=== PATIENT | male | born 1960 | race Caucasian/White ===

== ENCOUNTER → 2017-10-10 | Outpatient (REF) | payer BC ==
[2017-10-10 11:36] LABS: ALBUMIN 3.9 GM/DL (3.2-5.2); ALBUMIN/GLOBULIN RATIO 1.15 (1.00-1.93); ALKALINE PHOSPHATASE 88 U/L (45-117); ALT/SGPT 82 U/L (12-78); ANION GAP 7 MEQ/L (8-16); AST/SGOT 47 U/L (7-37); BILIRUBIN,TOTAL 0.2 MG/DL (0.2-1.0); BLOOD UREA NITROGEN 16 MG/DL (7-18); CALCIUM LEVEL 8.6 MG/DL (8.5-10.1); CARBON DIOXIDE LEVEL 30 MEQ/L (21-32); CHLORIDE LEVEL 103 MEQ/L (98-107); CHOLESTEROL LEVEL 182 MG/DL (<200); CREATININE FOR GFR 0.88 MG/DL (0.70-1.30); GLOMERULAR FILTRATION RATE > 60.0 (>56); GLUCOSE, FASTING 91 MG/DL (70-105); HDL CHOLESTEROL 50 MG/DL (>40); NON-HDL-C 132 MG/DL; POTASSIUM SERUM 4.4 MEQ/L (3.5-5.1); PSA SCREENING 0.39 NG/ML (< 4.0); SODIUM LEVEL 140 MEQ/L (136-145); TOTAL PROTEIN 7.3 GM/DL (6.4-8.2); TRIGLYCERIDES LEVEL 140 MG/DL (<150)
== END ==
LOC: M SFHCCLAY 07:33
DX: I10 Essential (primary) hypertension (principal); Z12.5 Encounter for screening for malignant neoplasm of prostate

== ENCOUNTER → 2018-05-22 | Outpatient (REF) | payer BC ==
[2018-05-22 11:17] LABS: HEMATOCRIT 44.4 % (42.0-52.0); HEMOGLOBIN 14.8 g/dl (13.5-17.5); MEAN CORPUSCULAR HEMOGLOBIN 30.5 pg (27.0-33.0); MEAN CORPUSCULAR HGB CONC 33.3 g/dl (32.0-36.5); MEAN CORPUSCULAR VOLUME 91.4 fl (80.0-96.0); PLATELET COUNT, AUTOMATED 275 10^3/uL (150-450); RED BLOOD COUNT 4.86 10^6/uL (4.30-6.10); RED CELL DISTRIBUTION WIDTH 13.2 % (11.5-14.5); WHITE BLOOD COUNT 9.3 10^3/uL (4.0-10.0)
[2018-05-22 11:46] LABS: ALBUMIN 3.9 GM/DL (3.2-5.2); ALBUMIN/GLOBULIN RATIO 1.18 (1.00-1.93); ALKALINE PHOSPHATASE 66 U/L (45-117); ALT/SGPT 41 U/L (12-78); ANION GAP 7 MEQ/L (8-16); AST/SGOT 25 U/L (7-37); BILIRUBIN,DIRECT 0.2 MG/DL (0.0-0.2); BILIRUBIN,TOTAL 0.8 MG/DL (0.2-1.0); BLOOD UREA NITROGEN 18 MG/DL (7-18); CALCIUM LEVEL 8.8 MG/DL (8.5-10.1); CARBON DIOXIDE LEVEL 30 MEQ/L (21-32); CHLORIDE LEVEL 105 MEQ/L (98-107); CREATININE FOR GFR 0.99 MG/DL (0.70-1.30); GLOMERULAR FILTRATION RATE > 60.0 (>56); GLUCOSE, FASTING 100 MG/DL (70-100); PHOSPHORUS LEVEL 2.4 MG/DL (2.5-4.9); POTASSIUM SERUM 4.1 MEQ/L (3.5-5.1); SODIUM LEVEL 142 MEQ/L (136-145); TOTAL PROTEIN 7.2 GM/DL (6.4-8.2)
== END ==
LOC: M LABDRAWC 11:03
DX: B35.1 Tinea unguium (principal); Z79.899 Other long term (current) drug therapy
CPT/HCPCS: 80076

== ENCOUNTER → 2018-06-29 | Outpatient (REF) | payer BC ==
[2018-06-29 11:53] LABS: HEMATOCRIT 44.5 % (42.0-52.0); HEMOGLOBIN 14.6 g/dl (13.5-17.5); MEAN CORPUSCULAR HEMOGLOBIN 30.5 pg (27.0-33.0); MEAN CORPUSCULAR HGB CONC 32.8 g/dl (32.0-36.5); MEAN CORPUSCULAR VOLUME 92.9 fl (80.0-96.0); PLATELET COUNT, AUTOMATED 272 10^3/uL (150-450); RED BLOOD COUNT 4.79 10^6/uL (4.30-6.10); RED CELL DISTRIBUTION WIDTH 13.3 % (11.5-14.5); WHITE BLOOD COUNT 5.2 10^3/uL (4.0-10.0)
[2018-06-29 12:06] LABS: ALBUMIN 3.9 GM/DL (3.2-5.2); ALBUMIN/GLOBULIN RATIO 1.11 (1.00-1.93); ALKALINE PHOSPHATASE 66 U/L (45-117); ALT/SGPT 32 U/L (12-78); ANION GAP 5 MEQ/L (8-16); AST/SGOT 27 U/L (7-37); BILIRUBIN,DIRECT 0.1 MG/DL (0.0-0.2); BILIRUBIN,TOTAL 0.5 MG/DL (0.2-1.0); BLOOD UREA NITROGEN 22 MG/DL (7-18); CALCIUM LEVEL 8.9 MG/DL (8.5-10.1); CARBON DIOXIDE LEVEL 31 MEQ/L (21-32); CHLORIDE LEVEL 103 MEQ/L (98-107); CREATININE FOR GFR 1.05 MG/DL (0.70-1.30); GLOMERULAR FILTRATION RATE > 60.0 (>56); GLUCOSE, FASTING 100 MG/DL (70-100); PHOSPHORUS LEVEL 3.1 MG/DL (2.5-4.9); POTASSIUM SERUM 4.1 MEQ/L (3.5-5.1); SODIUM LEVEL 139 MEQ/L (136-145); TOTAL PROTEIN 7.4 GM/DL (6.4-8.2)
== END ==
LOC: M LABDRAWC 11:13
DX: Z79.899 Other long term (current) drug therapy (principal)
CPT/HCPCS: 80076

== ENCOUNTER → 2018-09-11 | Outpatient (REF) | payer BC | LOC: M LAB REF 16:19 | DX: D21.22 Benign neoplasm of connective and other soft tissue of left lower limb, including hip (principal) | CPT/HCPCS: 88305 ==

== ENCOUNTER → 2018-11-02 | Outpatient (REF) | payer BC ==
[2018-11-02 13:05] LABS: ALBUMIN 4.2 GM/DL (3.2-5.2); ALT/SGPT 30 U/L (12-78); BILIRUBIN,TOTAL 0.5 MG/DL (0.2-1.0); BLOOD UREA NITROGEN 23 MG/DL (7-18); CALCIUM LEVEL 9.5 MG/DL (8.5-10.1); CARBON DIOXIDE LEVEL 29 MEQ/L (21-32); CHLORIDE LEVEL 104 MEQ/L (98-107); CHOLESTEROL LEVEL 208 MG/DL (<200); CHOLESTEROL RISK RATIO 3.924 (<5); CREATININE FOR GFR 1.06 MG/DL (0.70-1.30); GLOMERULAR FILTRATION RATE > 60.0 (>56); GLUCOSE, FASTING 97 MG/DL (70-100); HDL CHOLESTEROL 53 MG/DL (>40); LDL CHOLESTEROL 121 MG/DL (<100); NON-HDL-C 155 MG/DL; POTASSIUM SERUM 4.5 MEQ/L (3.5-5.1); SODIUM LEVEL 140 MEQ/L (136-145); TOTAL PROTEIN 7.6 GM/DL (6.4-8.2); TRIGLYCERIDES LEVEL 169 MG/DL (<150)
== END ==
LOC: M SFHCCLAY 07:58
PROVIDERS: ATTEND Family Medicine
DX: I10 Essential (primary) hypertension (principal); E78.2 Mixed hyperlipidemia

== ENCOUNTER → 2019-10-08 | Outpatient (REF) | payer BC ==
[2019-10-08 11:30] LABS: BASO # 0.1 10^3/uL (0.0-0.2); BASO % 0.8 % (0.0-1.0); EOS # 0.3 10^3/uL (0.0-0.5); EOS % 3.4 % (0.0-3.0); HEMATOCRIT 49.6 % (42.0-52.0); HEMOGLOBIN 16.6 g/dl (13.5-17.5); LYMPH % 27.8 % (24.0-44.0); MEAN CORPUSCULAR HEMOGLOBIN 30.5 pg (27.0-33.0); MEAN CORPUSCULAR HGB CONC 33.5 g/dl (32.0-36.5); MEAN CORPUSCULAR VOLUME 91.2 fl (80.0-96.0); MONO # 1.1 10^3/uL (0.0-0.8); MONO % 15.3 % (0.0-5.0); NEUTROPHILS # 3.8 10^3/uL (1.5-8.5); NEUTROPHILS % 52.6 % (36.0-66.0); PLATELET COUNT, AUTOMATED 237 10^3/uL (150-450); RED BLOOD COUNT 5.44 10^6/uL (4.30-6.10); WHITE BLOOD COUNT 7.3 10^3/uL (4.0-10.0)
[2019-10-08 11:34] LABS: ALBUMIN 4.1 GM/DL (3.2-5.2); ALT/SGPT 42 U/L (12-78); BILIRUBIN,TOTAL 0.5 MG/DL (0.2-1.0); BLOOD UREA NITROGEN 18 MG/DL (7-18); CALCIUM LEVEL 9.1 MG/DL (8.5-10.1); CARBON DIOXIDE LEVEL 27 MEQ/L (21-32); CHLORIDE LEVEL 104 MEQ/L (98-107); CHOLESTEROL LEVEL 200 MG/DL (<200); CHOLESTEROL RISK RATIO 4.166 (<5); CREATININE FOR GFR 1.09 MG/DL (0.70-1.30); GLOMERULAR FILTRATION RATE > 60.0 (>56); GLUCOSE, FASTING 96 MG/DL (70-100); HDL CHOLESTEROL 48 MG/DL (>40); LDL CHOLESTEROL 130 MG/DL (<100); NON-HDL-C 152 MG/DL; SODIUM LEVEL 138 MEQ/L (136-145); TOTAL PROTEIN 7.6 GM/DL (6.4-8.2); TRIGLYCERIDES LEVEL 109 MG/DL (<150)
== END ==
LOC: M SFHCCLAY 07:53
PROVIDERS: ATTEND Family Medicine
DX: E78.2 Mixed hyperlipidemia (principal); I10 Essential (primary) hypertension

== ENCOUNTER → 2020-10-18 | Outpatient (REF) | payer BC ==
[2020-10-18 13:44] LABS: ALT/SGPT 34 U/L (12-78); BILIRUBIN,TOTAL 0.6 MG/DL (0.2-1.0); BLOOD UREA NITROGEN 20 MG/DL (7-18); CALCIUM LEVEL 9.1 MG/DL (8.5-10.1); CARBON DIOXIDE LEVEL 29 MEQ/L (21-32); CHLORIDE LEVEL 105 MEQ/L (98-107); CHOLESTEROL LEVEL 209 MG/DL (<200); CHOLESTEROL RISK RATIO 3.666 (<5); CREATININE FOR GFR 0.99 MG/DL (0.70-1.30); GLOMERULAR FILTRATION RATE > 60.0 (>56); GLUCOSE, FASTING 102 MG/DL (70-100); HDL CHOLESTEROL 57 MG/DL (>40); LDL CHOLESTEROL 130 MG/DL (<100); NON-HDL-C 152 MG/DL; POTASSIUM SERUM 4.1 MEQ/L (3.5-5.1); SODIUM LEVEL 139 MEQ/L (136-145); TOTAL PROTEIN 7.2 GM/DL (6.4-8.2); TRIGLYCERIDES LEVEL 108 MG/DL (<150)
== END ==
LOC: M SFHCCLAY 07:00
PROVIDERS: ATTEND Family Medicine
DX: E78.2 Mixed hyperlipidemia (principal); I10 Essential (primary) hypertension

== ENCOUNTER → 2021-02-06 | Outpatient (CLI) | payer BC ==
--- NOTE | 2021-02-06 14:28 | REP ---
INDICATION: RT ELBOW PAIN. COMPARISON: None. TECHNIQUE: Four views of the right elbow are provided FINDINGS: . views of the right elbow demonstrate coronoid process spurring.. No fracture or subluxation is seen. No opaque foreign body noted. No evidence of joint effusion. 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 No fracture or subluxation is seen.. <Electronically signed by Gee Garcia > 02/06/21 [id number]
== END ==
LOC: M CLY 08:28
PROVIDERS: ATTEND Family Medicine
DX: M25.521 Pain in right elbow (principal); M77.8 Other enthesopathies, not elsewhere classified

== ENCOUNTER → 2021-05-15 | Outpatient (REF) | payer BC | LOC: M LAB REF 16:23 | PROVIDERS: ATTEND Physician Assistant | DX: C44.320 Squamous cell carcinoma of skin of unspecified parts of face (principal) ==

== ENCOUNTER → 2023-02-07 | Outpatient (REF) | payer BC ==
[2023-02-07 11:40] LABS: BASO # 0.1 10^3/uL (0.0-0.2); BASO % 0.9 % (0.0-1.0); EOS # 0.2 10^3/uL (0.0-0.5); EOS % 2.7 % (0.0-3.0); HEMATOCRIT 47.5 % (42.0-52.0); HEMOGLOBIN 15.6 g/dl (13.5-17.5); LYMPH # 2.6 10^3/uL (1.5-5.0); LYMPH % 39.5 % (24.0-44.0); MEAN CORPUSCULAR HGB CONC 32.8 g/dl (32.0-36.5); MEAN CORPUSCULAR VOLUME 91.3 fl (80.0-96.0); MONO # 0.8 10^3/uL (0.0-0.8); MONO % 11.5 % (2.0-8.0); NEUTROPHILS % 45.3 % (36.0-66.0); PLATELET COUNT, AUTOMATED 292 10^3/uL (150-450); WHITE BLOOD COUNT 6.7 10^3/uL (4.0-10.0)
[2023-02-07 12:08] LABS: ALBUMIN 3.9 G/DL (3.2-5.2); ALKALINE PHOSPHATASE 73 U/L (46-116); ALT/SGPT 20 U/L (7.0-40); AST/SGOT 21 U/L (<34); BILIRUBIN,TOTAL 0.9 MG/DL (0.3-1.2); BLOOD UREA NITROGEN 20 MG/DL (9-23); CALCIUM LEVEL 9.5 MG/DL (8.3-10.6); CARBON DIOXIDE LEVEL 30 MMOL/L (20-31); CHLORIDE LEVEL 104 MMOL/L (98-107); CHOLESTEROL LEVEL 192 MG/DL (<200); CHOLESTEROL RISK RATIO 3.74 (<5); CREATININE FOR GFR 1.14 MG/DL (0.70-1.30); GLOMERULAR FILTRATION RATE > 60.0 (>49); GLUCOSE, FASTING 98 MG/DL (74-106); HDL CHOLESTEROL 51.3 MG/DL (>40); LDL CHOLESTEROL 119.5 MG/DL (<100); NON-HDL-C 140.7 MG/DL; POTASSIUM SERUM 4.2 MMOL/L (3.5-5.1); SODIUM LEVEL 139 MMOL/L (136-145); TRIGLYCERIDES LEVEL 106 MG/DL (<150)
== END ==
LOC: M SFHCCLAY 07:18
PROVIDERS: ATTEND Family Medicine
DX: E78.2 Mixed hyperlipidemia (principal); I10 Essential (primary) hypertension

== ENCOUNTER → 2024-02-18 | Outpatient (REF) | payer BC ==
[2024-02-18 13:33] LABS: ALBUMIN 4.1 G/DL (3.2-5.2); ALKALINE PHOSPHATASE 77 U/L (46-116); ALT/SGPT 26 U/L (7.0-40); AST/SGOT 22 U/L (<34); BILIRUBIN,TOTAL 0.8 MG/DL (0.3-1.2); BLOOD UREA NITROGEN 21 MG/DL (9-23); CALCIUM LEVEL 9.3 MG/DL (8.3-10.6); CARBON DIOXIDE LEVEL 29 MMOL/L (20-31); CHLORIDE LEVEL 103 MMOL/L (98-107); CHOLESTEROL LEVEL 200 MG/DL (<200); CHOLESTEROL RISK RATIO 4.28 (<5); GLOMERULAR FILTRATION RATE > 60.0 (>49); GLUCOSE, FASTING 104 MG/DL (74-106); HDL CHOLESTEROL 46.7 MG/DL (>40); LDL CHOLESTEROL 131.3 MG/DL (<100); NON-HDL-C 153.3 MG/DL; SODIUM LEVEL 139 MMOL/L (136-145); TOTAL PROTEIN 7.2 G/DL (5.7-8.2); TRIGLYCERIDES LEVEL 110 MG/DL (<150)
== END ==
LOC: M SFHCCLAY 07:06
PROVIDERS: ATTEND Family Medicine
DX: I10 Essential (primary) hypertension (principal)

== ENCOUNTER 2024-07-14 08:53 | Inpatient (IN) | payer BC, OTHER ==
[2024-07-14] VITALS (8 sets, daily range): BP systolic 123–146; BP diastolic 70–73; TEMP 97.8–98.9; O2SAT 92–97
[~2024-07-14] VITALS: Ht 182.9 cm; Wt 105.0 kg
[~2024-07-14 08:53] MED LIST: AMLO2.5T3 PO; HYDR-3490 PO; LISI40TA4 PO
[2024-07-14] MEDS ORDERED: ISOVUE-370 76% 100ML VIAL As Ordered ONE (09:08)
[2024-07-14 09:28] LABS: BASO # 0.1 10^3/uL (0.0-0.2); BASO % 0.5 % (0.0-1.0); EOS # 0.1 10^3/uL (0.0-0.5); EOS % 0.4 % (0.0-3.0); HEMATOCRIT 44.6 % (42.0-52.0); HEMOGLOBIN 14.9 g/dl (13.5-17.5); LYMPH % 17.3 % (24.0-44.0); MEAN CORPUSCULAR HEMOGLOBIN 30.6 pg (27.0-33.0); MEAN CORPUSCULAR HGB CONC 33.4 g/dl (32.0-36.5); MEAN CORPUSCULAR VOLUME 91.6 fl (80.0-96.0); MONO # 1.2 10^3/uL (0.0-0.8); MONO % 6.9 % (2.0-8.0); NEUTROPHILS # 12.8 10^3/uL (1.5-8.5); NEUTROPHILS % 73.9 % (36.0-66.0); PLATELET COUNT, AUTOMATED 293 10^3/uL (150-450); RED BLOOD COUNT 4.87 10^6/uL (4.30-6.10); WHITE BLOOD COUNT 17.3 10^3/uL (4.0-10.0)
[2024-07-14 09:32] LABS: INR 1.06; PARTIAL THROMBOPLASTIN TIME 21.1 SECONDS (24.8-34.2); PROTHROMBIN TIME 13.5 SECONDS (12.5-14.5)
[2024-07-14 09:50] LABS: CK-MB VALUE MASS 2.3 NG/ML (<3.6); ETHYL ALCOHOL (ETHANOL) < 0.003 % (0.000-0.010); LIPASE 38 U/L (12-53)
[2024-07-14 09:51] LABS: AMYLASE 36 U/L (30-118); CPK CREATINE PHOSPHOKINASE 239 U/L (46-171); MB/CK RELATIVE INDEX 0.96 (< OR =4)
[2024-07-14 09:52] LABS: ALBUMIN 3.7 G/DL (3.2-5.2); ALKALINE PHOSPHATASE 73 U/L (46-116); ALT/SGPT 34 U/L (7.0-40); AST/SGOT 24 U/L (<34); BILIRUBIN,DIRECT 0.2 MG/DL (<0.4); BILIRUBIN,TOTAL 0.7 MG/DL (0.3-1.2); TOTAL PROTEIN 6.8 G/DL (5.7-8.2)
[2024-07-14] MEDS: BOOSTRIX VACCINE (TETANUS/DIPHTH/ACEL. PERTUSSIS) 0.5ML SYR IM.IMMUN ONE (09:57)
[2024-07-14 10:07] LABS: ABG BASE EXCESS -1.6 (-2.0-2.0); ABG HCO3 22.1 MMOL/L (22.0-26.0); ABG O2 SATURATION 94.6 % (95.0-99.0); ABG PARTIAL PRESSURE CO2 34.4 mmHg (35.0-45.0); ABG STANDARD HCO3 23.1 MMOL/L. (22.0-26.0); ABG TOTAL CO2 23.1 MMOL/L (23.0-31.0); ABG pH (ARTERIAL) 7.425 UNITS (7.350-7.450)
[2024-07-14] MEDS: fentaNYL 100 MCG/2 ML INJECTION IV PRN (10:26)
[2024-07-14] MEDS ORDERED: HOME MED LIST COMPLETE! XX SCH (11:20)
[2024-07-14] MEDS ORDERED: MORPHINE 4 MG/ML 1ML VIAL As Ordered ONE (13:33)
[2024-07-14 13:37] LABS: APPEARANCE, URINE CLEAR (CLEAR); BACTERIA, URINE AUTO NEGATIVE (NEGATIVE); BILIRUBIN, URINE AUTO NEGATIVE (NEGATIVE); BLOOD, URINE BLOOD NEGATIVE (NEGATIVE); COLOR, URINE YELLOW (YELLOW); GLUCOSE, URINE (UA) AUTO NEGATIVE (NEGATIVE); KETONE, URINE AUTO TRACE mg/dL (NEGATIVE); LEUKOCYTE ESTERASE, URINE AUTO NEGATIVE (NEGATIVE); NITRITE, URINE AUTO NEGATIVE (NEGATIVE); PROTEIN, URINE AUTO NEGATIVE (NEGATIVE); RBC, URINE AUTO 0 /HPF (0-3); SPECIFIC GRAVITY URINE AUTO 1.053 (1.002-1.035); SQUAMOUS EPITHELIAL CELL UR AU 0 /HPF (0-6); UROBILINOGEN, URINE AUTO 0.2 mg/dL (0.0-2.0); WBC, URINE AUTO 1 /HPF (0-3)
[2024-07-14] MEDS: MORPHINE 4 MG/ML 1ML VIAL IV ONE (13:39)
[2024-07-14] MEDS: ALBUTEROL SULFATE 2.5MG/0.5ML INH NEB SOLN NEB SCH (14:00)
[2024-07-14 14:01] LABS: AMPHETAMINES LEVEL URINE NEGATIVE (NEGATIVE); BARBITURATES URINE NEGATIVE (NEGATIVE); BENZODIAZEPINES URINE NEGATIVE (NEGATIVE)
[2024-07-14 14:02] LABS: COCAINE METABOLITE URINE NEGATIVE (NEGATIVE); METHADONE URINE NEGATIVE (NEGATIVE); OPIATES URINE NEGATIVE (NEGATIVE); PHENCYCLIDINE URINE NEGATIVE (NEGATIVE)
[2024-07-14 14:09] LABS: CANNABINOIDS URINE POSITIVE (NEGATIVE)
[2024-07-14] MEDS ORDERED: PERCOCET 5MG/325MG TAB PO PRN (14:15)
[2024-07-14] MEDS ORDERED: hydrALAZINE 20MG/ML 1ML VIAL IV PRN (14:15)
[2024-07-14] MEDS ORDERED: ACETAMINOPHEN 325 MG TAB PO PRN (14:15)
[2024-07-14 16:25] LABS: BLOOD UREA NITROGEN 16 MG/DL (9-23); CALCIUM LEVEL 9.1 MG/DL (8.3-10.6); CARBON DIOXIDE LEVEL 26 MMOL/L (20-31); CHLORIDE LEVEL 103 MMOL/L (98-107); CREATININE FOR GFR 0.79 MG/DL (0.70-1.30); GLOMERULAR FILTRATION RATE > 60.0 (>49); GLUCOSE, FASTING 118 MG/DL (74-106); POTASSIUM SERUM 3.7 MMOL/L (3.5-5.1); SODIUM LEVEL 136 MMOL/L (136-145)
[2024-07-14] MEDS: CYCLOBENZAPRINE 5MG TABLET PO SCH (16:27)
[2024-07-14] MEDS: ACETAMINOPHEN 500 MG TAB PO SCH (16:27)
[2024-07-14] MEDS: NS 1,000 ML IV SCH (16:41)
[2024-07-14] MEDS: oxyCODONE 5MG TAB PO PRN (23:34)
[2024-07-15] VITALS (26 sets, daily range): BP systolic 114–139; BP diastolic 62–79; TEMP 97–98.6; O2SAT 92–100
[2024-07-15 05:30] LABS: HEMATOCRIT 42.8 % (42.0-52.0); HEMOGLOBIN 14.3 g/dl (13.5-17.5); MEAN CORPUSCULAR HEMOGLOBIN 30.6 pg (27.0-33.0); MEAN CORPUSCULAR HGB CONC 33.4 g/dl (32.0-36.5); MEAN CORPUSCULAR VOLUME 91.5 fl (80.0-96.0); PLATELET COUNT, AUTOMATED 236 10^3/uL (150-450); RED BLOOD COUNT 4.68 10^6/uL (4.30-6.10); WHITE BLOOD COUNT 10.2 10^3/uL (4.0-10.0)
[2024-07-15 05:51] LABS: BLOOD UREA NITROGEN 13 MG/DL (9-23); CALCIUM LEVEL 8.5 MG/DL (8.3-10.6); CARBON DIOXIDE LEVEL 28 MMOL/L (20-31); CHLORIDE LEVEL 106 MMOL/L (98-107); CREATININE FOR GFR 0.86 MG/DL (0.70-1.30); GLOMERULAR FILTRATION RATE > 60.0 (>49); GLUCOSE, FASTING 105 MG/DL (74-106); POTASSIUM SERUM 3.5 MMOL/L (3.5-5.1); SODIUM LEVEL 138 MMOL/L (136-145)
[2024-07-15] MEDS: lisinopriL 40MG TAB PO SCH (08:30)
[2024-07-15] MEDS: SENOKOT S TAB PO SCH (08:53)
[2024-07-15] MEDS: MORPHINE 4 MG/ML 1ML VIAL IV PRN (08:54)
[2024-07-15] MEDS: KETOROLAC 30 MG/ML 1ML VIAL IV SCH (13:33)
[2024-07-15] MEDS: HEPARIN SOD (PORCINE) 5000UNITS/ML 1ML VIAL/SYRINGE SQ SCH (13:34)
[2024-07-16] VITALS (21 sets, daily range): BP systolic 132–160; BP diastolic 78–81; TEMP 97.2–98.1; O2SAT 88–100
[2024-07-16 06:26] LABS: BASO % 0.4 % (0.0-1.0); EOS # 0.2 10^3/uL (0.0-0.5); EOS % 2.1 % (0.0-3.0); HEMATOCRIT 41.5 % (42.0-52.0); HEMOGLOBIN 13.9 g/dl (13.5-17.5); LYMPH # 2.4 10^3/uL (1.5-5.0); LYMPH % 23.7 % (24.0-44.0); MEAN CORPUSCULAR HEMOGLOBIN 30.8 pg (27.0-33.0); MEAN CORPUSCULAR HGB CONC 33.5 g/dl (32.0-36.5); MONO # 0.9 10^3/uL (0.0-0.8); MONO % 9.3 % (2.0-8.0); NEUTROPHILS # 6.4 10^3/uL (1.5-8.5); NEUTROPHILS % 64.2 % (36.0-66.0); PLATELET COUNT, AUTOMATED 221 10^3/uL (150-450); RED BLOOD COUNT 4.51 10^6/uL (4.30-6.10)
[2024-07-16 06:37] LABS: BLOOD UREA NITROGEN 21 MG/DL (9-23); CALCIUM LEVEL 8.8 MG/DL (8.3-10.6); CARBON DIOXIDE LEVEL 26 MMOL/L (20-31); CHLORIDE LEVEL 106 MMOL/L (98-107); CREATININE FOR GFR 0.96 MG/DL (0.70-1.30); GLOMERULAR FILTRATION RATE > 60.0 (>49); GLUCOSE, FASTING 105 MG/DL (74-106); POTASSIUM SERUM 3.4 MMOL/L (3.5-5.1); SODIUM LEVEL 139 MMOL/L (136-145)
[2024-07-16 08:28] LABS: MAGNESIUM LEVEL 2.2 MG/DL (1.8-2.4)
[2024-07-16] MEDS: POTASSIUM CHLORIDE 10MEQ SR TABLET PO ONE (08:36)
[2024-07-17 03:33] VITALS: BP 115/59; TEMP 97.3; O2SAT 95
[2024-07-17 07:11] LABS: HEMATOCRIT 42.2 % (42.0-52.0); HEMOGLOBIN 14.3 g/dl (13.5-17.5); MEAN CORPUSCULAR HGB CONC 33.9 g/dl (32.0-36.5); MEAN CORPUSCULAR VOLUME 91.3 fl (80.0-96.0); PLATELET COUNT, AUTOMATED 254 10^3/uL (150-450); RED BLOOD COUNT 4.62 10^6/uL (4.30-6.10)
[2024-07-17 07:35] LABS: BLOOD UREA NITROGEN 22 MG/DL (9-23); CALCIUM LEVEL 9.1 MG/DL (8.3-10.6); CARBON DIOXIDE LEVEL 27 MMOL/L (20-31); CHLORIDE LEVEL 107 MMOL/L (98-107); CREATININE FOR GFR 0.87 MG/DL (0.70-1.30); GLOMERULAR FILTRATION RATE > 60.0 (>49); GLUCOSE, FASTING 101 MG/DL (74-106); POTASSIUM SERUM 3.8 MMOL/L (3.5-5.1); SODIUM LEVEL 141 MMOL/L (136-145)
[2024-07-17 07:40] VITALS: BP 140/68; TEMP 97.5; O2SAT 95
[2024-07-17] MEDS ORDERED: NALOXONE INJ 0.4MG/1ML VIAL IV PRN (09:20)
[2024-07-17] MEDS ORDERED: cloNIDine 0.1MG TABLET PO PRN (09:25)
[2024-07-17] MEDS ORDERED: FLEET ENEMA PR PRN (09:25)
[2024-07-17] MEDS: ACETAMINOPHEN 500 MG TAB PO ONE (10:29)
[2024-07-17] MEDS: oxyCODONE 10 MG CR TAB PO ONE (10:30)
[2024-07-17] MEDS: METHYLNALTREXONE BROMIDE 12MG/0.6ML VIAL (RELISTOR) SC ONE (10:31)
[2024-07-17] MEDS: oxyCODONE 5MG TAB PO SCH (11:40)
[2024-07-17] MEDS: POLYETHYLENE GLYCOL (MIRALAX) 238GM BOTTLE PO ONE (12:39)
[2024-07-17 16:10] VITALS: BP 124/65; TEMP 97.7; O2SAT 90
[2024-07-17] MEDS: ACETAMINOPHEN 500 MG TAB PO SCH (17:03)
[2024-07-17 19:30] VITALS: BP 130/67; TEMP 97.8; O2SAT 93
[2024-07-17] MEDS: oxyCODONE 10 MG CR TAB PO SCH (21:15)
[2024-07-17 22:30] VITALS: BP 142/60; TEMP 97.8; O2SAT 90
[2024-07-18 03:08] VITALS: O2SAT 90
[2024-07-18] MEDS: oxyCODONE 5MG TAB PO ONE ×2 (08:33→14:39)
[2024-07-18] MEDS: MAGNESIUM CITRATE 300ML BTL PO ONE (08:35)
[2024-07-18] MEDS: METHYLNALTREXONE BROMIDE 12MG/0.6ML VIAL (RELISTOR) SC ONE (10:06)
[2024-07-18] MEDS: oxyCODONE 15MG CR TAB PO ONE (11:13)
[2024-07-18 11:30] VITALS: O2SAT 92
[2024-07-18 12:00] VITALS: BP 144/79; TEMP 98; O2SAT 92
[2024-07-18 19:59] VITALS: BP 151/97; TEMP 98.1; O2SAT 89
[2024-07-18] MEDS: oxyCODONE 15MG CR TAB PO SCH (20:21)
[2024-07-19] MEDS: oxyCODONE 5MG TAB PO ONE ×3 (04:17→16:11)
[2024-07-19 04:31] VITALS: BP 154/88; TEMP 97.9; O2SAT 95
[2024-07-19] MEDS: LACTULOSE 20GM/30ML SYRUP UDC PO SCH (08:37)
[2024-07-19 09:14] LABS: BLOOD UREA NITROGEN 23 MG/DL (9-23); CALCIUM LEVEL 9.1 MG/DL (8.3-10.6); CARBON DIOXIDE LEVEL 26 MMOL/L (20-31); CHLORIDE LEVEL 108 MMOL/L (98-107); CREATININE FOR GFR 0.93 MG/DL (0.70-1.30); GLOMERULAR FILTRATION RATE > 60.0 (>49); GLUCOSE, FASTING 87 MG/DL (74-106); POTASSIUM SERUM 3.8 MMOL/L (3.5-5.1); SODIUM LEVEL 140 MMOL/L (136-145)
[2024-07-19] MEDS: MOM 30ML SUSPENSION UDC PO PRN (11:29)
[2024-07-19 12:00] VITALS: BP 130/80; TEMP 97.8; O2SAT 96
[2024-07-19] MEDS: ONDANSETRON 4MG 2ML VIAL IV ONE (12:43)
[2024-07-19] MEDS: BISACODYL 10MG SUPP PR PRN (14:22)
[2024-07-19] MEDS: BISACODYL 10MG SUPP PR ONE (14:25)
[2024-07-19] MEDS: GOLYTELY SOLN 4000 ML BTL PO ONE (16:11)
[2024-07-19] MEDS ORDERED: ONDANSETRON 4MG 2ML VIAL IV PRN (17:00)
[2024-07-19 19:55] VITALS: BP 134/83; TEMP 98.2; O2SAT 90
[2024-07-19] MEDS: BISACODYL 10MG SUPP PR SCH (20:22)
[2024-07-20 04:35] VITALS: BP 157/91; TEMP 98.1; O2SAT 96
[2024-07-20] MEDS: oxyCODONE 5MG TAB PO ONE (05:30)
[2024-07-20] MEDS: POLYETHYLENE GLYCOL (MIRALAX) 238GM BOTTLE PO ONE (05:31)
[2024-07-20] MEDS ORDERED: MIRA3350 PO (07:29)
[2024-07-20] MEDS ORDERED: LACT20EL PO (07:29)
[2024-07-20] MEDS ORDERED: SENO8.6T10 PO (07:29)
[2024-07-20] MEDS ORDERED: DULC10SU2 PR (07:29)
[2024-07-20 08:05] VITALS: BP 149/89
[2024-07-20] MEDS ORDERED: PERC10TA26 PO (08:10)
[2024-07-20 12:00] VITALS: BP 144/75; TEMP 97.9; O2SAT 90
== END 2024-07-20 14:00 | disposition home or self-care (01) | DRG 135 ==
LOC: EDBD 08:53 → M ED 08:53 → M ED INP 14:08 → M PCU 16:03 → M MS5PR 07-17 22:10
PROVIDERS: ADMIT Internal Medicine; ATTEND General Practice
PROC: 2W3BXYZ Immobilization of Left Upper Arm using Other Device (ICD-10-PCS; principal; 2024-07-14)
DX: S22.5XXA Flail chest, initial encounter for closed fracture (principal); E87.20 Acidosis, unspecified; S01.81XA Laceration without foreign body of other part of head, initial encounter; I10 Essential (primary) hypertension; E78.5 Hyperlipidemia, unspecified; J98.11 Atelectasis; S42.022A Displaced fracture of shaft of left clavicle, initial encounter for closed fracture; V49.49XA Driver injured in collision with other motor vehicles in traffic accident, initial encounter; S20.20XA Contusion of thorax, unspecified, initial encounter; R20.0 Anesthesia of skin; G47.30 Sleep apnea, unspecified; R09.02 Hypoxemia; K59.00 Constipation, unspecified; E87.6 Hypokalemia; T40.2X5A Adverse effect of other opioids, initial encounter; Z79.899 Other long term (current) drug therapy; Z88.2 Allergy status to sulfonamides; Z91.030 Bee allergy status; M79.642 Pain in left hand

== ENCOUNTER → 2024-07-26 | Outpatient (CLI) | payer OTHER ==
[~2024-07-26] MED LIST changes: +BISA10SU27; +CYCL-707 PO; +DULC10SU2 PR; +LACT10SO3; +LACT10SO3 PO; +LACT20EL PO; +MIRA3350 PO; +OXYC10TA3 PO; +OXYC1TAB23 PO; +PERC10TA26 PO; +POLY510P14; +SENN-121; +SENN-121 PO; +SENO8.6T10 PO
== END ==
LOC: M SOG 07:22
PROVIDERS: ATTEND Physician Assistant
DX: M54.2 Cervicalgia (principal); S42.002A Fracture of unspecified part of left clavicle, initial encounter for closed fracture; X58.XXXA Exposure to other specified factors, initial encounter; Y92.9 Unspecified place or not applicable; Y93.9 Activity, unspecified; Y99.9 Unspecified external cause status

== ENCOUNTER → 2024-07-27 | Outpatient (CLI) | payer OTHER, BC | LOC: M CLY 10:04 | PROVIDERS: ATTEND Family Medicine | DX: S22.42XD Multiple fractures of ribs, left side, subsequent encounter for fracture with routine healing (principal); S42.022D Displaced fracture of shaft of left clavicle, subsequent encounter for fracture with routine healing ==

== ENCOUNTER → 2024-07-27 | Outpatient (CLI) | payer OTHER, BC | LOC: M CLY 09:56 | PROVIDERS: ATTEND Family Medicine | DX: S22.42XD Multiple fractures of ribs, left side, subsequent encounter for fracture with routine healing (principal); Z53.9 Procedure and treatment not carried out, unspecified reason ==

== ENCOUNTER 2024-07-28 08:25 | Day surgery (SDC) | payer OTHER ==
[~2024-07-28] VITALS: Ht 185.4 cm; Wt 82.2 kg
[~2024-07-28 08:25] MED LIST changes: -LACT10SO3; -LACT10SO3 PO; +LACT10SO94; -OXYC10TA3 PO; -SENN-121 PO
[2024-07-28] MEDS ORDERED: NS 1,000 ML IV SCH (08:40)
[2024-07-28] MEDS ORDERED: LR 1,000 ML IV SCH (08:40)
[2024-07-28] MEDS ORDERED: ROCURONIUM BROMIDE 50MG/5ML VIAL ONE (09:49)
[2024-07-28] MEDS ORDERED: LIDOCAINE 2% 100MG/5ML SDV (FOR ANES.) ONE (09:49)
[2024-07-28] MEDS ORDERED: propofoL 200 MG/20 ML VIAL ONE (09:49)
[2024-07-28] MEDS ORDERED: SUGAMMADEX SODIUM 500 MG/5 ML VIAL (BRIDION) ONE (09:49)
[2024-07-28] MEDS ORDERED: ACETAMINOPHEN 1000MG/100ML IV BAG ONE (09:50)
[2024-07-28] MEDS ORDERED: dexmedeTOMIDine (4MCG/ML)200MCG/50ML BTL (PRECEDEX) ONE (09:50)
[2024-07-28] MEDS ORDERED: ONDANSETRON 4MG 2ML VIAL ONE (09:50)
[2024-07-28] MEDS ORDERED: VASOPRESSIN INJ 20UNITS/ML 1ML VIAL ONE (10:33)
[2024-07-28] MEDS ORDERED: LACRILUBE (AKWA TEARS) OPHTH OINT 3.5GM ONE (10:33)
[2024-07-28] MEDS: ceFAZolin SOD 2 GM in IV 1 EA IV ONE (11:57)
[2024-07-28] MEDS ORDERED: MIDAZOLAM INJ 2MG/2ML VIAL ONE (11:58)
[2024-07-28] MEDS ORDERED: fentaNYL 100 MCG/2 ML INJECTION ONE ×2 (11:59→12:52)
[2024-07-28] MEDS: SODIUM BICARBONATE 8.4% INJ 50MEQ 50ML VIAL As Ordered ONE (12:40)
[2024-07-28] MEDS: LIDOCAINE W/EPINEPHRINE 1% 20ML VIAL As Ordered ONE (12:40)
[2024-07-28] MEDS ORDERED: ONDANSETRON 4MG 2ML VIAL IV PRN (14:05)
[2024-07-28] MEDS ORDERED: fentaNYL 100 MCG/2 ML INJECTION IV PRN (14:05)
[2024-07-28] MEDS: MORPHINE 2 MG/ML 1ML VIAL IV PRN ×2 (14:40→16:04)
[2024-07-28] MEDS ORDERED: OXYC10TA3 PO (14:46)
[2024-07-28] MEDS ORDERED: LACT10SO94 PO (14:46)
[2024-07-28] MEDS ORDERED: SENN-121 PO (14:46)
[2024-07-28] MEDS: oxyCODONE 5MG TAB PO PRN (14:55)
[2024-07-28] MEDS: ONDANSETRON 4MG 2ML VIAL IV PRN (16:55)
[2024-07-28 18:20] VITALS: BP 139/72; TEMP 99.1; O2SAT 97
== END 2024-07-28 18:29 | disposition home or self-care (01) ==
LOC: M SDC 08:25
PROVIDERS: ATTEND Orthopaedic Surgery Hand Surgery
DX: S42.022A Displaced fracture of shaft of left clavicle, initial encounter for closed fracture (principal); V89.2XXA Person injured in unspecified motor-vehicle accident, traffic, initial encounter; Y92.410 Unspecified street and highway as the place of occurrence of the external cause; I10 Essential (primary) hypertension; E78.5 Hyperlipidemia, unspecified; Z79.899 Other long term (current) drug therapy; Z88.2 Allergy status to sulfonamides; Z91.030 Bee allergy status
CPT/HCPCS: 23515; 71045; 76000; C1713; J0131; J0690; J1100; J2250; J2405; J2598; J3010

== ENCOUNTER → 2024-08-06 | Outpatient (CLI) | payer OTHER ==
[~2024-08-06] MED LIST changes: +LACT10SO3; +LACT10SO3 PO; -LACT10SO94; +OXYC10TA3 PO; +SENN-121 PO
== END ==
LOC: M SOG 07:53
PROVIDERS: ATTEND Physician Assistant
DX: M54.2 Cervicalgia (principal); S42.002A Fracture of unspecified part of left clavicle, initial encounter for closed fracture; Z53.9 Procedure and treatment not carried out, unspecified reason

== ENCOUNTER → 2024-08-06 | Outpatient (CLI) | payer OTHER | LOC: M SOG 09:34 | PROVIDERS: ATTEND Physician Assistant | DX: M54.2 Cervicalgia (principal); S42.002D Fracture of unspecified part of left clavicle, subsequent encounter for fracture with routine healing; S22.42XD Multiple fractures of ribs, left side, subsequent encounter for fracture with routine healing ==

== ENCOUNTER → 2024-08-27 | Outpatient (CLI) | payer OTHER ==
[~2024-08-27] MED LIST changes: -LACT10SO3; -LACT10SO3 PO; +LACT10SO94; +LACT10SO94 PO
== END ==
LOC: M SOG 07:53
PROVIDERS: ATTEND Physician Assistant
DX: M54.2 Cervicalgia (principal); S42.002D Fracture of unspecified part of left clavicle, subsequent encounter for fracture with routine healing

== ENCOUNTER → 2024-09-27 | Outpatient (CLI) | payer OTHER | LOC: M SOG 07:49 | PROVIDERS: ATTEND Physician Assistant | DX: M54.2 Cervicalgia (principal); S42.002A Fracture of unspecified part of left clavicle, initial encounter for closed fracture; Y93.9 Activity, unspecified; Y92.9 Unspecified place or not applicable ==

== ENCOUNTER → 2024-10-28 | Outpatient (CLI) | payer OTHER, BC | LOC: M SOG 07:53 | PROVIDERS: ATTEND Physician Assistant | DX: M54.2 Cervicalgia (principal); S42.002D Fracture of unspecified part of left clavicle, subsequent encounter for fracture with routine healing ==

== ENCOUNTER → 2024-12-02 | Outpatient (CLI) | payer OTHER, BC | LOC: M SOG 07:56 | PROVIDERS: ATTEND Physician Assistant | DX: M54.2 Cervicalgia (principal); S42.002A Fracture of unspecified part of left clavicle, initial encounter for closed fracture ==

== ENCOUNTER → 2024-12-17 | Outpatient (CLI) | payer OTHER, BC | LOC: M PLARAD 09:04 | PROVIDERS: ATTEND Physician Assistant | DX: Z04.2 Encounter for examination and observation following work accident (principal); M25.512 Pain in left shoulder; M75.02 Adhesive capsulitis of left shoulder; S46.012A Strain of muscle(s) and tendon(s) of the rotator cuff of left shoulder, initial encounter; M67.814 Other specified disorders of tendon, left shoulder ==

== ENCOUNTER → 2025-02-21 | Outpatient (REF) | payer BC ==
[2025-02-21 14:55] LABS: ALKALINE PHOSPHATASE 78 U/L (40-129); ALT/SGPT 32 U/L (7.0-40); AST/SGOT 23 U/L (<34); BILIRUBIN,TOTAL 0.7 MG/DL (0.3-1.2); BLOOD UREA NITROGEN 19 MG/DL (9-23); CALCIUM LEVEL 9.8 MG/DL (8.3-10.6); CARBON DIOXIDE LEVEL 29 MMOL/L (20-31); CHLORIDE LEVEL 104 MMOL/L (98-107); CHOLESTEROL LEVEL 230 MG/DL (<200); CHOLESTEROL RISK RATIO 3.93 (<5); CREATININE FOR GFR 0.93 MG/DL (0.70-1.30); GLOMERULAR FILTRATION RATE > 90.0 (>49); GLUCOSE, FASTING 105 MG/DL (74-106); HDL CHOLESTEROL 58.5 MG/DL (>40); LDL CHOLESTEROL 142.7 MG/DL (<100); NON-HDL-C 171.5 MG/DL; POTASSIUM SERUM 3.9 MMOL/L (3.5-5.1); SODIUM LEVEL 142 MMOL/L (136-145); TOTAL PROTEIN 7.2 G/DL (5.7-8.2); TRIGLYCERIDES LEVEL 144 MG/DL (<150)
== END ==
LOC: M SFHCCLAY 07:26
PROVIDERS: ATTEND Family Medicine
DX: E78.2 Mixed hyperlipidemia (principal)

== ENCOUNTER → 2025-04-06 | Outpatient (CLI) | payer OTHER, BC ==
[~2025-04-06] MED LIST changes: +ACET-907 PO; +CELE0.09 PO; +COLA100C5 PO; +CYCL5TAB4 PO; +LISI40TA10 PO; -LISI40TA4 PO; +ONDA-282 PO; +OXYC-517 PO
== END ==
LOC: M EKG 08:18
PROVIDERS: ATTEND Anesthesiology
DX: Z01.818 Encounter for other preprocedural examination (principal); I44.7 Left bundle-branch block, unspecified

== ENCOUNTER 2025-04-13 14:49 | Day surgery (SDC) | payer OTHER ==
[~2025-04-13] VITALS: Ht 182.9 cm; Wt 85.7 kg
[2025-04-13] MEDS: LR 1,000 ML IV SCH (15:15)
[2025-04-13] MEDS: dexAMETHasone 10 MG/1 ML VIAL PRES.FREE PN ONE (16:05)
[2025-04-13] MEDS: ROPIvacaine 0.5% 30ML VIAL PN ONE (16:05)
[2025-04-13] MEDS: LIDOCAINE 1% SDV 5 ML VIAL PN ONE (16:05)
[2025-04-13] MEDS: EPINEPHrine INJ 1 MG/ML 1ML AMP PN ONE (16:05)
[2025-04-13] MEDS: MIDAZOLAM INJ 2 MG/2 ML VIAL IV PRN (16:15)
[2025-04-13] MEDS: TRANEXAMIC ACID 100 MG/ML 10ML VIAL As Ordered ONE (17:35)
[2025-04-13] MEDS ORDERED: ONDANSETRON 4MG 2ML VIAL As Ordered ONE (17:44)
[2025-04-13] MEDS ORDERED: LIDOCAINE 2% 100 MG/5 ML SDV (FOR ANES.) As Ordered ONE (17:44)
[2025-04-13] MEDS ORDERED: KETOROLAC 30 MG/ML 1 ML VIAL As Ordered ONE (17:44)
[2025-04-13] MEDS ORDERED: SUGAMMADEX SODIUM 500 MG/5 ML VIAL As Ordered ONE (17:44)
[2025-04-13] MEDS ORDERED: dexmedeTOMIDine (4 MCG/ML) 200 MCG/50 ML BTL As Ordered ONE (17:44)
[2025-04-13] MEDS ORDERED: ACETAMINOPHEN 1000MG/100ML IV BAG As Ordered ONE (17:44)
[2025-04-13] MEDS ORDERED: dexAMETHasone 4 MG/ML 1 ML VIAL As Ordered ONE (17:44)
[2025-04-13] MEDS ORDERED: ROCURONIUM BROMIDE 50MG/5ML VIAL As Ordered ONE (17:44)
[2025-04-13] MEDS ORDERED: MIDAZOLAM INJ 2 MG/2 ML VIAL As Ordered ONE (17:44)
[2025-04-13] MEDS: EPINEPHrine 1 MG/ML INJ 30 ML MD-VIAL As Ordered ONE (17:55)
[2025-04-13] MEDS ORDERED: PHENYLephrine 500MCG 5ML (100MCG/ML) SYRINGE As Ordered ONE (18:07)
[2025-04-13] MEDS: LIDOCAINE 1% MDV 20 ML VIAL As Ordered ONE (18:35)
[2025-04-13] MEDS: TRIAMCINOLONE ACETONIDE SUSP 40MG/ML 1ML VIAL As Ordered ONE (18:36)
[2025-04-13] MEDS ORDERED: HYDROMORPHONE HCL 0.5 MG/0.5 ML SYRINGE IV PRN (18:55)
[2025-04-13] MEDS ORDERED: ONDANSETRON 4MG 2ML VIAL IV PRN (18:55)
[2025-04-13 20:05] VITALS: BP 160/89; TEMP 97.2; O2SAT 95
== END 2025-04-13 20:18 | disposition home or self-care (01) ==
LOC: M SDC 14:49
PROVIDERS: ATTEND Orthopaedic Surgery
DX: M75.02 Adhesive capsulitis of left shoulder (principal); M75.102 Unspecified rotator cuff tear or rupture of left shoulder, not specified as traumatic; M75.22 Bicipital tendinitis, left shoulder; M19.012 Primary osteoarthritis, left shoulder; M94.212 Chondromalacia, left shoulder; I10 Essential (primary) hypertension; K21.9 Gastro-esophageal reflux disease without esophagitis; Z79.899 Other long term (current) drug therapy; Z88.2 Allergy status to sulfonamides; Z91.030 Bee allergy status
CPT/HCPCS: 29825; J0131; J0169; J0665; J0690; J1100; J1885; J2250; J2371; J2405; J2765; J3010; J3301